=== PATIENT | female | born 1955 ===

== ENCOUNTER 2020-07-20 07:22 | Inpatient (IN) | payer OTHER ==
[2020-07-25] MEDS ORDERED: ATORVASTATIN CA40 MG (12:18)
[2020-07-25] MEDS ORDERED: SYNTHROID (12:18)
[2020-07-25] MEDS ORDERED: JARDIANCE25 MG (12:18)
[2020-07-25] MEDS ORDERED: COZAAR50 MG (12:19)
[2020-07-25] MEDS ORDERED: GABAPENTIN300 MG (12:19)
[2020-07-27] MEDS ORDERED: CLONAZEPAM1 MG PO (07:52)
[2020-07-27] MEDS ORDERED: COLACE100 MG PO (07:52)
[2020-07-27] MEDS ORDERED: PERCOCET 5-3251 EACH PO (07:52)
== END 2020-07-28 12:32 | disposition home or self-care (01) | DRG 473 ==
LOC: SURH 07-25 11:00 → O/R 07-27 05:40 → SURH 07-27 11:00
PROVIDERS: ADMIT Orthopaedic Surgery Orthopaedic Surgery of the Spine; ATTEND Orthopaedic Surgery Orthopaedic Surgery of the Spine
PROC: 07DS3ZZ Extraction of Vertebral Bone Marrow, Percutaneous Approach (ICD-10-PCS; 2020-07-27)
PROC: 0RG20A0 Fusion of 2 or more Cervical Vertebral Joints with Interbody Fusion Device, Anterior Approach, Anterior Column, Open Approach (ICD-10-PCS; principal; 2020-07-27 13:15)
DX: M50.01 Cervical disc disorder with myelopathy, high cervical region (principal)